=== PATIENT | female | born 1995 | race Caucasian/White ===

== ENCOUNTER 2022-08-04 19:01 | Emergency (ER) | payer SELFPAY ==
[~2022-08-04] VITALS: Ht 172.7 cm; Wt 59.1 kg
[2022-08-04] MEDS ORDERED: PENICILLIN G BENZATHINE LA 1,200,000 UNITS/2 ML SYRINGE IM ONE (19:30)
[2022-08-04] MEDS ORDERED: ONDANSETRON HCL 4 MG/2 ML VIAL IVP ONE (19:30)
[2022-08-04] MEDS ORDERED: SODIUM CHLORIDE 0.9% 1,000 ML IV ONE (19:30)
[2022-08-04] MEDS ORDERED: KETOROLAC TROMETHAMINE 30 MG/ML VIAL IVP ONE (19:30)
[2022-08-04] MEDS: DEXAMETHASONE SOD PHOS 4 MG/ML 5 ML VIAL IM ONE ×2 (19:47→20:04)
[2022-08-04 20:30] VITALS: BP 133/81
[2022-08-04 21:16] LABS: COVID AG,FIA SOURCE NASOPHARYNGEAL
== END 2022-08-04 21:00 | disposition home or self-care (01) ==
LOC: EMS 19:09
DX: J02.8 Acute pharyngitis due to other specified organisms (principal); Z88.2 Allergy status to sulfonamides; Z20.822 Contact with and (suspected) exposure to COVID-19
CPT/HCPCS: 99284; 96374; 96361; 96375; 87426; 86308; 87430; 36415; 96372; J1100; J1885; J2405; J7030; J0561